=== PATIENT | female | born 1960 | race Caucasian/White ===

== ENCOUNTER 2016-11-05 09:28 | Day surgery (SDC) | payer MEDICARE ==
[2016-11-05 10:39] VITALS: BMI 29.2
[2016-11-05] MEDS ORDERED: Propofol 10 mg/ml Inj (20 ML) ONE (12:16)
[2016-11-05] MEDS ORDERED: Lactated Ringer's 500 ML IV ONE (12:38)
[2016-11-05 15:16] VITALS: BP 140/97; PULSE 64; RESP 16; TEMP 98.4; O2SAT 99
== END 2016-11-05 14:15 | disposition home or self-care (01) ==
LOC: C.ENDO 09:28
PROVIDERS: ATTEND Internal Medicine Gastroenterology
DX: K29.50 Unspecified chronic gastritis without bleeding (principal); K44.9 Diaphragmatic hernia without obstruction or gangrene; K31.89 Other diseases of stomach and duodenum
CPT/HCPCS: 43239; 88305; J2704; J7120